=== PATIENT | male | born 1965 ===

== ENCOUNTER 2017-08-21 15:28 | Emergency (ER) | payer OTHER ==
[2017-08-21 15:40] VITALS: BP 130/74; PULSE 69; RESP 16; TEMP 97.9; O2SAT 98
--- NOTE | 2017-08-21 16:38 | ED PDOC ---
Lower Extremity Pain/Injury Time Seen by Provider: 08/21/17 15:43 Chief Complaint (Nursing): Lower Extremity Problem/Injury Chief Complaint (Provider): Lower Extremity Problem/Injury History Per: Patient, Family (daughter) History/Exam Limitations: no limitations Onset/Duration Of Symptoms: Days (x2 weeks) Current Symptoms Are (Timing): Still Present Additional Complaint(s): 51 year old male with previous medical history of hypertension, who presents to the emergency department accompanied by daughter, with a complaint of left calf pain associated with swelling, back pain and painful ambulation status post hitting himself while pulling apart a shopping cart ongoing for 2 weeks. Denied any foot pain. Patient was seen at [facility] on 08/19/17 where he was discharged with Rx for Motrin, Flexeril and Tylenol. He saw Dr. Wallace guerrero who recommended ED evaluation with US to rule out DVT. PMD: Yariel Gonsalez MD Past Medical History Reviewed: Historical Data, Nursing Documentation, Vital Signs Vital Signs: Last Vital Signs Temp 97.9 F 08/21/17 15:38 Pulse 69 08/21/17 15:38 Resp 16 08/21/17 15:38 BP 130/74 08/21/17 15:38 Pulse Ox 98 08/21/17 15:38 - Medical History PMH: HTN - Surgical History Surgical History: No Surg Hx - Family History Family History: States: Unknown Family Hx - Social History Current smoker - smoking cessation education provided: No Ex-Smoker (has not smoked in the last 12 months): No Alcohol: None Drugs: Denies - Immunization History Hx Tetanus Toxoid Vaccination: No Hx Influenza Vaccination: No Hx Pneumococcal Vaccination: No - Home Medications Home Medications: Ambulatory Orders Medication Instructions Recorded Lisinopril [Prinivil] 10 mg PO DAILY 01/14/17 Acetaminophen [Tylenol Extra 2 tab PO Q6 #30 tablet 08/19/17 Strength] Cyclobenzaprine [Flexeril] 10 mg PO TID #15 tab 08/19/17 Ibuprofen [Motrin] 600 mg PO Q6 #30 tab 08/19/17 Lidocaine 5% [Lidoderm] 1 ea TD PRN PRN #10 patch 08/19/17 Sucralfate [Carafate] 1 gm PO BID 08/19/17 Cyclobenzaprine [Cyclobenzaprine 10 mg PO TID #20 tab 08/21/17 HCl] Ibuprofen [Motrin] 600 mg PO Q6 #20 tab 08/21/17 - Allergies Allergies/Adverse Reactions: Allergies Allergy/AdvReac Type Severity Reaction Status Date / Time No Known Allergies Allergy Verified 08/21/17 15:38 Review of Systems ROS Statement: Except As Marked, All Systems Reviewed And Found Negative Musculoskeletal: Positive for: Back Pain, Leg Pain (left calf with swelling). Negative for: Foot Pain Physical Exam - Reviewed Nursing Documentation Reviewed: Yes Vital Signs Reviewed: Yes - Physical Exam Appears: Positive for: Well, Non-toxic, No Acute Distress Head Exam: Positive for: ATRAUMATIC, NORMAL INSPECTION, NORMOCEPHALIC Cardiovascular/Chest: Positive for: Regular Rate, Rhythm, Chest Non Tender Respiratory: Positive for: Normal Breath Sounds. Negative for: Decreased Breath Sounds, Respiratory Distress Back: Positive for: Normal Inspection. Negative for: L CVA Tenderness, R CVA Tenderness Extremity: Positive for: Normal ROM, Pedal Edema (and ecchymosis below medial malleolus), Calf Tenderness (left-sided). Negative for: Deformity Neurologic/Psych: Positive for: Alert (x3), Oriented - ECG O2 Sat by Pulse Oximetry: 98 (RA) Pulse Ox Interpretation: Normal Medical Decision Making Medical Decision Making: Initial Impression: Left calf pain Initial Plan: * US duplex LE (left) ___ Time: 1808 --US duplex LE FINDINGS: 2-D, color and duplex Doppler analysis of the lower extremity venous circulation using routine protocol from the femoral veins through the popliteal veins. Venous compressibility: Normal. Flow and augmentation patterns: Normal. Visualized veins upper third of calf: Normal. Mcguire cyst: None In the left calf, note is made of a small irregular complex fluid collection, approximately 0.8 x 1.5 x 2.3 cm. Nonspecific. IMPRESSION: No sonographic or Doppler evidence for DVT in left lower extremity. Small irregular complex fluid collection in the left calf, 2.3 cm. Scribe Attestation: Documented by Marina Delcid, acting as a scribe for Debi Benavides Provider Scribe Attestation: All medical record entries made by the Scribe were at my direction and personally dictated by me. I have reviewed the chart and agree that the record accurately reflects my personal performance of the history, physical exam, medical decision making, and the department course for this patient. I have also personally directed, reviewed, and agree with the discharge instructions and disposition. Disposition - Clinical Impression Clinical Impression: Gastrocnemius muscle strain - Patient ED Disposition Is Patient to be Admitted: No - Disposition Disposition: Routine/Home Disposition Time: 17:00 Condition: STABLE Prescriptions: Cyclobenzaprine [Cyclobenzaprine HCl] 10 mg PO TID #20 tab Ibuprofen [Motrin] 600 mg PO Q6 #20 tab Instructions: Muscle Cramp (ED) Forms: [place] ([place])
--- NOTE | 2017-08-21 18:10 | US ---
HISTORY: pain to calf, r/o dvt . PRIORS: None. FINDINGS: 2-D, color and duplex Doppler analysis of the lower extremity venous circulation using routine protocol from the femoral veins through the popliteal veins. Venous compressibility: Normal. Flow and augmentation patterns: Normal. Visualized veins upper third of calf: Normal. Mcguire cyst: None In the left calf, note is made of a small irregular complex fluid collection, approximately 0.8 x 1.5 x 2.3 cm. Nonspecific. IMPRESSION: No sonographic or Doppler evidence for DVT in left lower extremity. Small irregular complex fluid collection in the left calf, 2.3 cm.
== END 2017-08-21 18:52 | disposition home or self-care (01) ==
LOC: H.ER 15:28
DX: S86.812A Strain of other muscle(s) and tendon(s) at lower leg level, left leg, initial encounter (principal); W22.8XXA Striking against or struck by other objects, initial encounter; Y92.89 Other specified places as the place of occurrence of the external cause; I10 Essential (primary) hypertension